=== PATIENT | male | born 1980 | race African-American/Black ===

== ENCOUNTER 2019-12-03 09:26 | Inpatient (IN) | payer OTHER ==
[2019-12-03 09:59] VITALS: BMI 27.0
--- NOTE | 2019-12-03 10:38 | HP ---
CIWA Score Nausea/Vomitin Muscle Tremors: 2 Anxiety: 3 Agitation: 2 Paroxysmal Sweats: 2 Orientation: 0-Oriented Tacttile Disturbances: 0-None Auditory Disturbances: 0-None Visual Disturbances: 0-None Headache: 1-Very Mild CIWA-Ar Total Score: 12 - Admission Criteria OASAS Guidelines: Admission for Medically Managed Detox: Requires at least one of the followin. CIWA greater than 12 2. Seizures within the past 24 hours 3. Delirium tremens within the past 24 hours 4. Hallucinations within the past 24 hours 5. Acute intervention needed for co occurring medical disorder 6. Acute intervention needed for co occurring psychiatric disorder 7. Severe withdrawal that cannot be handled at a lower level of care (continued vomiting, continued diarrhea, abnormal vital signs) requiring intravenous medication and/or fluids 8. Admitting History and Physical - Admission Chief Complaint: Mr. Raines presents to [facility] requesting admission to detox for alchohol use disorder. History of Present Illness: Mr. Raines is a 39 yo gentleman with no significant medical history who presents to [facility] requesting admission to detox for alcohol use disorder. History EtOH: first use age 19 y, last use yesterday at 11:30 am, quantity: Vodka 1/2 pint daily, Beer 80 ounces per day. History of black out 3 days ago. Seizure in June 2019. Marijuana: first at age 19 y, last use 4 days ago, quantity: 2 blunts Nicotine: first use ag 19 y, last use last night, quantity: 3-4 cigs/ day Denies; heroin, methadone, cocaine, benzodiazepines - Smoking History Smoking history: Current every day smoker Have you smoked in the past 12 months: Yes Aproximately how many cigarettes per day: [address] [facility] Allergies/Adverse Reactions: Allergies Allergy/AdvReac Type Severity Reaction Status Date / Time No Known Allergies Allergy Verified 12/03/19 09:48 Exam Limitations: No Limitations - Ebola screening Have you traveled outside of the country in the last 21 days: No Have you had contact with anyone from an Ebola affected area: No Have you been sick,other than usual withdrawal symptoms: No Do you have a fever: No - Review of Systems Constitutional: No Symptoms Reported EENT: reports: No Symptoms Reported, Other (wears glasses for reading) Respiratory: reports: No Symptoms reported Cardiac: reports: No Symptoms Reported GI: reports: No Symptoms Reported, See HPI : reports: Other (recent vericocoel) Musculoskeletal: reports: No Symptoms Reported Integumentary: reports: No Symptoms Reported Neuro: reports: No Symptoms reported Endocrine: reports: No Symptoms Reported, Other (feels dehydrated currently) Hematology: reports: No Symptoms Reported Psychiatric: reports: No Sypmtoms Reported Patient History - Patient Medical History Hx Asthma: No Hx Chronic Obstructive Pulmonary Disease (COPD): No Hx Cardiac Disorders: No Hx Hypertension: No Hx Seizures: Yes (last seizure was 07/18 not currently on medication.) Hx Diabetes: No Hx Gastrointestinal Disorders: Yes (Hx of acid reflux.) Hx Genitourinary Disorders: No Hx Sexually Transmitted Disorders: Yes (Hx of gonnorhea) Hx Renal Disease (ESRD): No Hx Depression: No Hx Suicide Attempt: No Hx Schizophrenia: No Other Medical History: Sickle cell trait - Patient Surgical History Past Surgical History: Yes Other Surgical History: Sx for varicele at age 11 yrs. - PPD History Previous Implant?: Yes Documented Results: Negative w/o proof Implanted On Prior R Admission?: No PPD to be Administered?: Yes - Smoking Cessation Smoking history: Current every day smoker Have you smoked in the past 12 months: Yes Aproximately how many cigarettes per day: 4 Hx Chewing Tobacco Use: No Initiated information on smoking cessation: Yes 'Breaking Loose' booklet given: 12/03/19 - Substance & Tx. History Substance Use Type: Alcohol, Marijuana Hx Substance Use Treatment: No - Substances abused Alcohol Substance route: Oral Frequency: Daily Amount used: 2 40 oz beers/ 1-2 pints vodka Age of first use: 19 Date of last use: 12/02/19 Other Substance route: Smoking Frequency: 1-2 times per week Amount used: 2 blunts Age of first use: 19 Date of last use: 11/30/19 Admission Physical Exam BHS - Vital Signs Vital Signs: Vital Signs - 24 hr 12/03/19 09:49 Temperature 97.9 F Pulse Rate 71 Respiratory 16 Rate Blood Pressure 133/74 - Physical General Appearance: Yes: No Apparent Distress, Nourished, Appropriately Dressed HEENTM: Yes: EOMI, Hearing grossly Normal, Normal Voice, ОЛЬГА, Pharynx Normal, Other (3 tongue bolts, one lower lip/chin bolt, one right lateral brow bolt) Respiratory: Yes: Lungs Clear, Normal Breath Sounds Neck: Yes: Within Normal Limits Breast: Yes: Breast Exam Deferred Cardiology: Yes: Regular Rate, S1, S2 Abdominal: Yes: Normal Bowel Sounds, Non Tender, Flat, Soft Genitourinary: Yes: Other (deferred) Back: Yes: Within Normal Limits, Normal Inspection Extremities: Yes: Within Normal Limits, Other (multiple tattoos bilateral forearms) Neurological: Yes: port warden II-XII NML intact, Fully Oriented, Alert, Normal Mood/ Affect Integumentary: Yes: Within Normal Limits Lymphatic: Yes: Within Normal Limits - Diagnostic (1) Alcohol dependence with withdrawal, uncomplicated Current Visit: Yes Status: Acute Cleared for Admission S - Detox or Rehab [facility] Level of Care: Medically Managed Breathalyzer - Breathalyzer Breathalyzer: 0 Urine Drug Screen - Test Device Lot number: [id number] Expiration date: 09/23/21 - Control Is test valid?: Yes - Results Drug screen NEGATIVE: No Urine drug screen results: THC-Marijuana Inpatient Rehab Admission - Rehab Decision to Admit Inpatient rehab admission?: No
[2019-12-03] MEDS ORDERED: MAGNESIUM CITRATE 300 ML BOTTLE PO PRN (10:47)
[2019-12-03] MEDS ORDERED: chlordiazePOXIDE HCL 25 MG CAPSULE PO PRN (10:47)
[2019-12-03] MEDS ORDERED: ACETAMINOPHEN 325 MG TABLET (FP) PO PRN ×2 (10:47)
[2019-12-03] MEDS ORDERED: BISMUTH SUBSALICYLATE 262 MG/15 ML BTL PO PRN (10:47)
[2019-12-03] MEDS ORDERED: MAG HYDROX/AL HYDROX/SIMETH 30 ML UNIT-DOSE CUP PO PRN (10:47)
[2019-12-03] MEDS ORDERED: hydrOXYzine PAMOATE 25 MG CAPSULE (FP) PO PRN (10:47)
[2019-12-03] MEDS ORDERED: MAGNESIUM HYDROX 2400MG/30ML ORAL SUSPENSION 30 ML CUP PO PRN (10:47)
[2019-12-03] MEDS ORDERED: MENTHOL/PHENOL 1 EACH UD MM PRN (10:47)
[2019-12-03] MEDS ORDERED: IBUPROFEN 400 MG TABLET (FP) PO PRN (10:47)
[2019-12-03] MEDS: chlordiazePOXIDE HCL 25 MG CAPSULE PO SCH ×3 (11:48→22:05)
[2019-12-03] MEDS: DOXYCYCLINE HYCLATE 100 MG TABLET PO SCH ×2 (12:28→17:46)
[2019-12-03 15:57] LABS: HEMATOCRIT 43.4 % (35.4-49); HEMOGLOBIN 14.6 GM/dL (11.7-16.9); MCH 31.2 pg (25.7-33.7); MCHC 33.6 g/dl (32.0-35.9); MEAN CELL VOLUME 92.8 fl (80-96); MEAN PLT VOLUME 8.6 fl (7.5-11.1); PLATELET COUNT 263 K/MM3 (134-434); RBC 4.67 M/mm3 (4.00-5.60); RDW 14.3 % (11.9-15.9); WHITE BLOOD COUNT 5.1 K/mm3 (4.0-10.0)
[2019-12-03 16:07] LABS: ALBUMIN 3.9 g/dl (3.4-5.0); BILIRUBIN,TOTAL 0.7 mg/dL (0.2-1); BLOOD UREA NITROGEN 13.5 mg/dL (7-18); CALCIUM 9.1 mg/dL (8.5-10.1); CREATININE 1.1 mg/dL (0.55-1.3); POTASSIUM 3.9 mmol/L (3.5-5.1); TOT PROT 7.2 g/dl (6.4-8.2)
[2019-12-03] MEDS: NICOTINE POLACRILEX 2 MG GUM BUC PRN (17:49)
[2019-12-03] MEDS: THIAMINE HCL 100 MG TABLET (FP) PO SCH (22:06)
[2019-12-03] MEDS: MELATONIN 5 MG TABLETS PO PRN (22:06)
[2019-12-04] MEDS: chlordiazePOXIDE HCL 25 MG CAPSULE PO SCH ×4 (06:33→22:11)
[2019-12-04] MEDS: PRENATAL VITAMINS W/ FOLIC ACID TABLET (FP) PO SCH (10:36)
[2019-12-04] MEDS: DOXYCYCLINE HYCLATE 100 MG TABLET PO SCH ×2 (10:37→18:08)
--- NOTE | 2019-12-04 11:48 | PN ---
S CIWA - CIWA Score Nausea/Vomitin-No Nausea/No Vomiting Muscle Tremors: 2 Anxiety: 2 Agitation: 2 Paroxysmal Sweats: 1-Minimal Palms Moist Orientation: 0-Oriented Tacttile Disturbances: 0-None Auditory Disturbances: 0-None Visual Disturbances: 0-None Headache: 0-None Present CIWA-Ar Total Score: 7 BHS Progress Note (SOAP) Subjective: feeling better sweats restless Objective: 12/04/19 11:43 Vital Signs Temperature 97.5 F L 12/04/19 08:54 Pulse Rate 58 L 12/04/19 08:54 Respiratory Rate 18 12/04/19 08:54 Blood Pressure 112/74 12/04/19 08:54 O2 Sat by Pulse Oximetry (%) Laboratory Tests 12/03/19 12/03/19 12/03/19 11:15 11:15 11:15 WBC 5.1 RBC 4.67 Hgb 14.6 Hct 43.4 MCV 92.8 MCH 31.2 MCHC 33.6 RDW 14.3 Plt Count 263 MPV 8.6 Sodium 140 Potassium 3.9 Chloride 108 H Carbon Dioxide 28 Anion Gap 4 L BUN 13.5 Creatinine 1.1 Est GFR (CKD-EPI)AfAm 98.87 Est GFR (CKD-EPI)NonAf 85.31 Random Glucose 81 Calcium 9.1 Total Bilirubin 0.7 AST 55 H ALT 46 Alkaline Phosphatase 59 Total Protein 7.2 Albumin 3.9 RPR Titer Nonreactive aaox3 ambulating no acute distress Assessment: 12/04/19 11:45 withdrawals Plan: continue detox
[2019-12-04] MEDS ORDERED: PNEUMOCOCCAL 23 VACCINE 0.5 ML VIAL IM ONE (12:00)
[2019-12-04] MEDS ORDERED: PNEUMOC 13-VAL CONJ-DIP CRM/PF 0.5 ML DISP.SYRIN IM ONE (12:00)
[2019-12-04] MEDS: NICOTINE POLACRILEX 2 MG GUM BUC PRN (13:24)
[2019-12-04] MEDS: THIAMINE HCL 100 MG TABLET (FP) PO SCH (22:11)
[2019-12-04] MEDS: METHOCARBAMOL 500 MG TABLET PO PRN (22:11)
[2019-12-04] MEDS: MELATONIN 5 MG TABLETS PO PRN (22:11)
[2019-12-05] MEDS: chlordiazePOXIDE HCL 25 MG CAPSULE PO SCH ×4 (06:26→22:21)
[2019-12-05] MEDS: METHOCARBAMOL 500 MG TABLET PO PRN ×2 (06:26→18:25)
[2019-12-05] MEDS: PRENATAL VITAMINS W/ FOLIC ACID TABLET (FP) PO SCH (10:47)
[2019-12-05] MEDS: DOXYCYCLINE HYCLATE 100 MG TABLET PO SCH ×2 (10:50→18:24)
--- NOTE | 2019-12-05 11:23 | PN ---
S CIWA - CIWA Score Nausea/Vomitin-No Nausea/No Vomiting Muscle Tremors: 2 Anxiety: 1-Mildly Anxious Agitation: 1-Slight > Activity Paroxysmal Sweats: 1-Minimal Palms Moist Orientation: 0-Oriented Tacttile Disturbances: 0-None Auditory Disturbances: 0-None Visual Disturbances: 0-None Headache: 0-None Present CIWA-Ar Total Score: 5 BHS Progress Note (SOAP) Subjective: feeling better sweats Objective: 12/05/19 11:22 Vital Signs Temperature 97.1 F L 12/05/19 09:18 Pulse Rate 61 12/05/19 09:18 Respiratory Rate 16 12/05/19 09:18 Blood Pressure 118/55 L 12/05/19 09:18 O2 Sat by Pulse Oximetry (%) Laboratory Tests 12/03/19 12/03/19 12/03/19 11:15 11:15 11:15 WBC 5.1 RBC 4.67 Hgb 14.6 Hct 43.4 MCV 92.8 MCH 31.2 MCHC 33.6 RDW 14.3 Plt Count 263 MPV 8.6 Sodium 140 Potassium 3.9 Chloride 108 H Carbon Dioxide 28 Anion Gap 4 L BUN 13.5 Creatinine 1.1 Est GFR (CKD-EPI)AfAm 98.87 Est GFR (CKD-EPI)NonAf 85.31 Random Glucose 81 Calcium 9.1 Total Bilirubin 0.7 AST 55 H ALT 46 Alkaline Phosphatase 59 Total Protein 7.2 Albumin 3.9 RPR Titer Nonreactive aaox3 ambulating no acute distress Assessment: 12/05/19 11:23 mild withdrawals Plan: continue detox increase fluids
[2019-12-05] MEDS: THIAMINE HCL 100 MG TABLET (FP) PO SCH (22:21)
[2019-12-05] MEDS: MELATONIN 5 MG TABLETS PO PRN (22:22)
[2019-12-06] MEDS ORDERED: chlordiazePOXIDE HCL 10 MG CAPSULE PO PRN
[2019-12-06] MEDS: chlordiazePOXIDE HCL 10 MG CAPSULE PO SCH ×4 (06:00→22:03)
[2019-12-06] MEDS: DOXYCYCLINE HYCLATE 100 MG TABLET PO SCH ×2 (10:07→17:52)
[2019-12-06] MEDS: PRENATAL VITAMINS W/ FOLIC ACID TABLET (FP) PO SCH (10:07)
--- NOTE | 2019-12-06 12:45 | PN ---
S CIWA - CIWA Score Nausea/Vomitin-No Nausea/No Vomiting Muscle Tremors: 2 Anxiety: 1-Mildly Anxious Agitation: 1-Slight > Activity Paroxysmal Sweats: 1-Minimal Palms Moist Orientation: 0-Oriented Tacttile Disturbances: 0-None Auditory Disturbances: 0-None Visual Disturbances: 0-None Headache: 0-None Present CIWA-Ar Total Score: 5 BHS Progress Note (SOAP) Subjective: feeling better sweats Objective: 12/06/19 12:45 Vital Signs Temperature 97.3 F L 12/06/19 08:47 Pulse Rate 62 12/06/19 08:47 Respiratory Rate 17 12/06/19 08:47 Blood Pressure 110/64 12/06/19 08:47 O2 Sat by Pulse Oximetry (%) aaox3 ambulating no acute distress Assessment: 12/06/19 12:45 withdrawals Plan: continue detox increase fluids
[2019-12-06] MEDS: THIAMINE HCL 100 MG TABLET (FP) PO SCH (22:03)
[2019-12-06] MEDS: MELATONIN 5 MG TABLETS PO PRN (22:03)
[2019-12-06] MEDS: METHOCARBAMOL 500 MG TABLET PO PRN (22:04)
[2019-12-07] MEDS: chlordiazePOXIDE HCL 10 MG CAPSULE PO SCH ×2 (05:48→17:55)
[2019-12-07] MEDS: PRENATAL VITAMINS W/ FOLIC ACID TABLET (FP) PO SCH (10:08)
[2019-12-07] MEDS: DOXYCYCLINE HYCLATE 100 MG TABLET PO SCH ×2 (10:08→17:55)
--- NOTE | 2019-12-07 13:44 | PN ---
S CIWA - CIWA Score Nausea/Vomitin-Mild Nausea/No Vomiting Muscle Tremors: 1-None Visible, but [place] Anxiety: 1-Mildly Anxious Agitation: 0-Normal Activity Paroxysmal Sweats: 1-Minimal Palms Moist Orientation: 0-Oriented Tacttile Disturbances: 0-None Auditory Disturbances: 0-None Visual Disturbances: 0-None Headache: 1-Very Mild CIWA-Ar Total Score: 5 BHS Progress Note (SOAP) Subjective: Mild withdrawal sx Objective: 12/07/19 13:43 Withdrawal sx Vital Signs Temperature 97.9 F 12/07/19 09:32 Pulse Rate 60 12/07/19 09:32 Respiratory Rate 20 12/07/19 09:32 Blood Pressure 125/69 12/07/19 09:32 O2 Sat by Pulse Oximetry (%) VSS Laboratory Last Values WBC 5.1 K/mm3 (4.0-10.0) 12/03/19 11:15 RBC 4.67 M/mm3 (4.00-5.60) 12/03/19 11:15 Hgb 14.6 GM/dL (11.7-16.9) 12/03/19 11:15 Hct 43.4 % (35.4-49) 12/03/19 11:15 MCV 92.8 fl (80-96) 12/03/19 11:15 MCH 31.2 pg (25.7-33.7) 12/03/19 11:15 MCHC 33.6 g/dl (32.0-35.9) 12/03/19 11:15 RDW 14.3 % (11.9-15.9) 12/03/19 11:15 Plt Count 263 K/MM3 (134-434) 12/03/19 11:15 MPV 8.6 fl (7.5-11.1) 12/03/19 11:15 Sodium 140 mmol/L (136-145) 12/03/19 11:15 Potassium 3.9 mmol/L (3.5-5.1) 12/03/19 11:15 Chloride 108 mmol/L (98-107) H 12/03/19 11:15 Carbon Dioxide 28 mmol/L (21-32) 12/03/19 11:15 Anion Gap 4 MMOL/L (8-16) L 12/03/19 11:15 BUN 13.5 mg/dL (7-18) 12/03/19 11:15 Creatinine 1.1 mg/dL (0.55-1.3) 12/03/19 11:15 Est GFR (CKD-EPI)AfAm 98.87 12/03/19 11:15 Est GFR (CKD-EPI)NonAf 85.31 12/03/19 11:15 Random Glucose 81 mg/dL (74-106) 12/03/19 11:15 Calcium 9.1 mg/dL (8.5-10.1) 12/03/19 11:15 Total Bilirubin 0.7 mg/dL (0.2-1) 12/03/19 11:15 AST 55 U/L (15-37) H 12/03/19 11:15 ALT 46 U/L (13-61) 12/03/19 11:15 Alkaline Phosphatase 59 U/L (45-117) 12/03/19 11:15 Total Protein 7.2 g/dl (6.4-8.2) 12/03/19 11:15 Albumin 3.9 g/dl (3.4-5.0) 12/03/19 11:15 RPR Titer Nonreactive (NONREACTIVE) 12/03/19 11:15 Labs noted Assessment: 12/07/19 13:44 Withdrawal sx Plan: Continue detox
[2019-12-07] MEDS: THIAMINE HCL 100 MG TABLET (FP) PO SCH (22:17)
[2019-12-07] MEDS: MELATONIN 5 MG TABLETS PO PRN (22:17)
[2019-12-08] MEDS ORDERED: chlordiazePOXIDE HCL 10 MG CAPSULE PO ONE (05:00)
[2019-12-08 09:55] VITALS: BP 119/73; PULSE 63; TEMP 97.3
[2019-12-08] MEDS: PRENATAL VITAMINS W/ FOLIC ACID TABLET (FP) PO SCH (09:55)
--- NOTE | 2019-12-08 17:42 | DS ---
[facility] Detox Discharge Summary Admission Date: 12/03/19 Discharge Date: 12/08/19 - History Present History: Alcohol Dependence, Cannabis Dependence Additional Comments: Patient completed detox and discharged safely. Instructed to follow up with PCP within 1-2 weeks. Pertinent Past History: Alcohol dependence Nicotine dependence Cannabis dependence Sickle cell trait Seizure disorder GERD - Physical Exam Results Vital Signs: Vital Signs Temperature 97.3 F L 12/08/19 09:25 Pulse Rate 63 12/08/19 09:25 Respiratory Rate 20 12/08/19 09:25 Blood Pressure 119/73 12/08/19 09:25 O2 Sat by Pulse Oximetry (%) Pertinent Admission Physical Exam Findings: Withdrawal sxs Laboratory Tests 12/03/19 12/03/19 12/03/19 11:15 11:15 11:15 WBC 5.1 RBC 4.67 Hgb 14.6 Hct 43.4 MCV 92.8 MCH 31.2 MCHC 33.6 RDW 14.3 Plt Count 263 MPV 8.6 Sodium 140 Potassium 3.9 Chloride 108 H Carbon Dioxide 28 Anion Gap 4 L BUN 13.5 Creatinine 1.1 Est GFR (CKD-EPI)AfAm 98.87 Est GFR (CKD-EPI)NonAf 85.31 Random Glucose 81 Calcium 9.1 Total Bilirubin 0.7 AST 55 H ALT 46 Alkaline Phosphatase 59 Total Protein 7.2 Albumin 3.9 RPR Titer Nonreactive Labs reviewed - Treatment Hospital Course: Detox Protocol Followed, Detoxed Safely, Responded well, Discharged Condition Good - Medication Discharge Medications: Ambulatory Orders Doxycycline Hyclate 100 mg PO BID 12/03/19 - Diagnosis (1) Cannabis dependence Status: Acute (2) Nicotine dependence Status: Chronic (3) Seizure disorder Status: Chronic (4) Sickle cell trait Status: Chronic (5) GERD (gastroesophageal reflux disease) Status: Chronic (6) Alcohol dependence with withdrawal, uncomplicated Status: Acute - AMA Did Patient Leave Against Medical Advice: No (Follow up with PCP within 1-2 weeks)
== END 2019-12-08 11:14 | disposition home or self-care (01) | DRG 775 ==
LOC: YASAS 09:26 → Y6N 11:07
PROVIDERS: ADMIT Allergy & Immunology; ATTEND Allergy & Immunology
PROC: HZ2ZZZZ Detoxification Services for Substance Abuse Treatment (ICD-10-PCS; principal; 2019-12-03)
DX: F10.230 Alcohol dependence with withdrawal, uncomplicated (principal); F12.20 Cannabis dependence, uncomplicated; F17.210 Nicotine dependence, cigarettes, uncomplicated; G40.909 Epilepsy, unspecified, not intractable, without status epilepticus; K21.9 Gastro-esophageal reflux disease without esophagitis; D57.3 Sickle-cell trait; Z87.438 Personal history of other diseases of male genital organs; Z59.0 Homelessness
CPT/HCPCS: 36415; 80053; 85027; 86593; 90732; G0009

== ENCOUNTER 2019-12-09 08:09 | Inpatient (IN) | payer OTHER ==
[2019-12-09 09:01] VITALS: BMI 28.0
--- NOTE | 2019-12-09 09:23 | HP ---
CIWA Score Nausea/Vomitin-No Nausea/No Vomiting Muscle Tremors: None Anxiety: 0-No Anxiety, at Ease Agitation: 0-Normal Activity Paroxysmal Sweats: No Perspiration Orientation: 0-Oriented Tacttile Disturbances: 0-None Auditory Disturbances: 0-None Visual Disturbances: 0-None Headache: 0-None Present CIWA-Ar Total Score: 0 - Admission Criteria OASAS Guidelines: Admission for Medically Managed Detox: Requires at least one of the followin. CIWA greater than 12 2. Seizures within the past 24 hours 3. Delirium tremens within the past 24 hours 4. Hallucinations within the past 24 hours 5. Acute intervention needed for co occurring medical disorder 6. Acute intervention needed for co occurring psychiatric disorder 7. Severe withdrawal that cannot be handled at a lower level of care (continued vomiting, continued diarrhea, abnormal vital signs) requiring intravenous medication and/or fluids 8. Admitting History and Physical - Admission Chief Complaint: Mr. Raines is a 39 yo man who returns for admission to Rehab. History of Present Illness: Mr. Raines is a 39 yo gentleman who presents to [facility] for admission to Rehab. He was discharged yesterday from Detox here. He was treated with a Librium withdrawal protocol for 5 days. Last night he stayed at the [facility]. PMH: Asthma, varicocele, seizure in June, noncomplaint with [facility] Substance use history Alcohol : 2 pints Vodka daily, 40 oz beers daily, first drink age 19y, last drink this am Marijuana: 2 blunts every other day Cigs: 2-3/day - Smoking History Smoking history: Current every day smoker Have you smoked in the past 12 months: Yes Aproximately how many cigarettes per day: 4 Admission [facility] Chief Complaint: Mr. Raines presents to [facility] requesting Rehab for alcohol use disorder Allergies/Adverse Reactions: Allergies Allergy/AdvReac Type Severity Reaction Status Date / Time No Known Allergies Allergy Verified 12/09/19 08:55 Exam Limitations: No Limitations - Ebola screening Have you traveled outside of the country in the last 21 days: No Have you had contact with anyone from an Ebola affected area: No Have you been sick,other than usual withdrawal symptoms: No Do you have a fever: No - Review of Systems Constitutional: No Symptoms Reported EENT: reports: No Symptoms Reported Respiratory: reports: No Symptoms reported Cardiac: reports: No Symptoms Reported GI: reports: No Symptoms Reported : reports: No Symptoms Reported Musculoskeletal: reports: No Symptoms Reported Integumentary: reports: No Symptoms Reported Neuro: reports: No Symptoms reported Endocrine: reports: No Symptoms Reported Hematology: reports: No Symptoms Reported Psychiatric: reports: No Sypmtoms Reported Patient History - Patient Medical History Hx Asthma: Yes (NO ASTHMA ATTACK SINCE AGE 17) Hx Chronic Obstructive Pulmonary Disease (COPD): No Hx Cardiac Disorders: No Hx Hypertension: No Hx Seizures: Yes (last seizure was 07/18 not currently on medication.) Hx Diabetes: No Hx Gastrointestinal Disorders: Yes (Hx of acid reflux.) Hx Genitourinary Disorders: No Hx Sexually Transmitted Disorders: Yes (Hx of gonnorhea) Hx Renal Disease (ESRD): No Hx Depression: No Hx Suicide Attempt: No Hx Schizophrenia: No - Patient Surgical History Past Surgical History: Yes Hx Neurologic Surgery: No Hx Cataract Extraction: No Hx Cardiac Surgery: No Hx Lung Surgery: No Hx Breast Surgery: No Hx Breast Biopsy: No Hx Abdominal Surgery: No Hx Appendectomy: No Hx Cholecystectomy: No Hx Genitourinary Surgery: No Hx Section: No Hx Orthopedic Surgery: No Other Surgical History: Sx for varicocele at age 11 yrs. - PPD History Previous Implant?: Yes Documented Results: Negative w/proof Implanted On Prior [facility] Admission?: No Date: 12/05/19 - Smoking Cessation Smoking history: Current every day smoker Have you smoked in the past 12 months: Yes Aproximately how many cigarettes per day: 4 Hx Chewing Tobacco Use: No Initiated information on smoking cessation: Yes 'Breaking Loose' booklet given: 12/09/19 - Substances abused Alcohol Substance route: Oral Frequency: Daily Amount used: 2 PINTS OF VODKA, 40 OUNCES BEER Age of first use: 20 Date of last use: 12/09/19 Marijuana/Hashish Substance route: Smoking Frequency: 1-2 times per week Amount used: 2 BLUNTS Age of first use: 19 Date of last use: 11/18/19 Admission Physical Exam BHS - Vital Signs Vital Signs: Vital Signs - 24 hr 12/09/19 08:49 Temperature 97.4 F L Pulse Rate 90 Respiratory 18 Rate Blood Pressure 136/70 - Physical General Appearance: Yes: Within Normal Limits HEENTM: Yes: Within Normal Limits Respiratory: Yes: Lungs Clear, Normal Breath Sounds Breast: Yes: Breast Exam Deferred Cardiology: Yes: Regular Rate, S1, S2 Abdominal: Yes: Non Tender, Flat, Soft, Decreased BS Back: Yes: Normal Inspection Musculoskeletal: Yes: Within Normal Limits Neurological: Yes: Fully Oriented, Alert Integumentary: Yes: Other (multiple tattoos) - Diagnostic (1) Alcohol use disorder Current Visit: Yes Status: Acute (2) Cannabis dependence Current Visit: Yes Status: Chronic (3) Nicotine dependence Current Visit: Yes Status: Chronic (4) Seizure disorder Current Visit: Yes Status: Chronic Cleared for Admission S - Detox or Rehab [facility] Level of Care: Medically Supervised Breathalyzer - Breathalyzer Breathalyzer: 0.084 Urine Drug Screen - Test Device Lot number: [id number] Expiration date: 09/28/21 - Control Is test valid?: Yes - Results Drug screen NEGATIVE: No Urine drug screen results: THC-Marijuana, BZO-Benzodiazepines Inpatient Rehab Admission - Rehab Decision to Admit Inpatient rehab admission?: Yes - Initial Determination Are CD services needed?: Yes Free of communicable disease: Yes Not in need of hospitalization: Yes - Rehab Admission Criteria Previous failed treatment: Yes Poor recovery environment: Yes Comorbidities: Yes Lacks judgement: Yes Patient is meeting Inpatient Rehab admission criteria:: Yes
[2019-12-09] MEDS ORDERED: MENTHOL/PHENOL 1 EACH UD MM PRN (09:30)
[2019-12-09] MEDS ORDERED: MAGNESIUM HYDROX 2400MG/30ML ORAL SUSPENSION 30 ML CUP PO PRN (09:30)
[2019-12-09] MEDS ORDERED: MAG HYDROX/AL HYDROX/SIMETH 30 ML UNIT-DOSE CUP PO PRN (09:30)
[2019-12-09] MEDS ORDERED: IBUPROFEN 400 MG TABLET (FP) PO PRN (09:30)
[2019-12-09] MEDS ORDERED: MAGNESIUM CITRATE 300 ML BOTTLE PO PRN (09:30)
[2019-12-09] MEDS ORDERED: NICOTINE POLACRILEX 2 MG GUM BUC PRN (09:30)
[2019-12-09] MEDS ORDERED: guaiFENesin 200 MG/10 ML 10 ML UNIT-DOSE CUPS PO PRN (09:30)
[2019-12-09] MEDS ORDERED: LOPERAMIDE HCL 2 MG CAPSULE PO PRN (09:30)
[2019-12-09] MEDS ORDERED: ACETAMINOPHEN 325 MG TABLET (FP) PO PRN (09:30)
[2019-12-09] MEDS ORDERED: P-EPHED 60MG/TRIPROLIDI 2.5MG TABLET PO PRN (09:30)
[2019-12-09] MEDS: PRENATAL VITAMINS W/ FOLIC ACID TABLET (FP) PO SCH (12:05)
[2019-12-09 13:10] LABS: ALBUMIN 3.9 g/dl (3.4-5.0); BILIRUBIN,TOTAL 0.6 mg/dL (0.2-1); BLOOD UREA NITROGEN 9.4 mg/dL (7-18); CALCIUM 9.7 mg/dL (8.5-10.1); CREATININE 0.9 mg/dL (0.55-1.3); POTASSIUM 3.9 mmol/L (3.5-5.1); TOT PROT 7.6 g/dl (6.4-8.2)
[2019-12-09] MEDS: THIAMINE HCL 100 MG TABLET (FP) PO SCH (21:38)
[2019-12-09] MEDS: MELATONIN 5 MG TABLETS PO PRN (21:38)
--- NOTE | 2019-12-10 09:38 | PN ---
[facility] Progress Note Note: Pt is a 39 y/o male with a hx of TOMY-alcohol,marijuana admitted to rehab through [facility]. Pt completed detox on on 12/03/19 to 12/08/19 and returned to seek rehab treatment yesterday. PMHx:Seizure d/o(On Keppra but noncompliant since and does not know his dose),Asthma(stable and no inhaler since 17 age),GERD(OTC tums), Left ankle Fx @34 y/o r/t twisting ankle/Baseball injury on same ankle in high school-torn ligament, Left knee pain and abrasion about weeks ago "banged my knee on my son's computer desk". PSHX:Left Varicocele (at age [age]; reoccurred 2 weeks ago and treated at [facility]);. Psych Hx:Denies. Pt reports he has primary care with [facility] on [place], [place]. This scientific writer called his home pharmacy [facility] and the pharmacist states he is not getting Keppra or any Seizure medications from their pharmacy records. Vital Signs - 24 hr 12/09/19 12/10/19 12/10/19 10:15 00:30 03:30 Temperature 97.6 F Pulse Rate 81 Respiratory 18 20 20 Rate Blood Pressure 117/69 12/10/19 07:16 Temperature 97.1 F L Pulse Rate 57 L Respiratory 20 Rate Blood Pressure 112/67 Alert o x 3, nad oob ambulating with steady gait extremities/skin:no edema; two scabs on left knee related to "banging knee on computer desk". A/P TOMY s/p detox Left knee abrasion Maintain safety increase po fluids seizure precautions Bacitracin ointment apply to left knee BID
[2019-12-10] MEDS: PRENATAL VITAMINS W/ FOLIC ACID TABLET (FP) PO SCH (10:40)
[2019-12-10] MEDS: NICOTINE 14 MG/24 HOURS TOPICAL PATCH TD SCH (10:41)
[2019-12-10] MEDS: BACITRACIN 15 GM TUBE TOPICAL OINTMENT TP SCH (10:41)
[2019-12-10] MEDS: FAMOTIDINE 20 MG TABLET PO SCH ×2 (10:41→21:14)
[2019-12-10] MEDS: THIAMINE HCL 100 MG TABLET (FP) PO SCH (21:14)
[2019-12-10] MEDS: MELATONIN 5 MG TABLETS PO PRN (21:14)
[2019-12-11] MEDS: NICOTINE 14 MG/24 HOURS TOPICAL PATCH TD SCH (10:40)
[2019-12-11] MEDS: PRENATAL VITAMINS W/ FOLIC ACID TABLET (FP) PO SCH (10:40)
[2019-12-11] MEDS: FAMOTIDINE 20 MG TABLET PO SCH ×2 (10:40→21:15)
[2019-12-11] MEDS: BACITRACIN 15 GM TUBE TOPICAL OINTMENT TP SCH (10:41)
[2019-12-11] MEDS: THIAMINE HCL 100 MG TABLET (FP) PO SCH (21:15)
[2019-12-11] MEDS: MELATONIN 5 MG TABLETS PO PRN (21:16)
[2019-12-12 07:27] VITALS: BP 101/66; PULSE 59; TEMP 97.3
[2019-12-12] MEDS: PRENATAL VITAMINS W/ FOLIC ACID TABLET (FP) PO SCH (10:24)
[2019-12-12] MEDS: NICOTINE 14 MG/24 HOURS TOPICAL PATCH TD SCH (10:24)
[2019-12-12] MEDS: FAMOTIDINE 20 MG TABLET PO SCH (10:24)
[2019-12-12] MEDS: BACITRACIN 15 GM TUBE TOPICAL OINTMENT TP SCH (10:25)
--- NOTE | 2019-12-12 14:21 | DS ---
[facility] Rehab Discharge Summary - [facility] Rehab Discharge Summary Admission Date: 12/09/19 Discharge Date: 12/12/19 - History Present History: Alcohol dependence, Cannabis dependence Additional Comments: Pt is a 39 y/o male with a hx of TOMY admitted to rehab and requesting early discharge today due to family/social service issues. Pt states he wants to go in person to [place] to reinstate his benefits which has been cut off. Reports he made a phone call home and was told he has to appear in person. Pt met with his counselor and has been referred to [facility] CD program for follow up. Pt reports he has primary care with [place], [place]. Pertinent Past History: Seizure Disorder(no current treatment) GERD Sickle Cell Trait - Discharge Physical Exam Vital Signs: Vital Signs Temperature 97.3 F L 12/12/19 07:26 Pulse Rate 59 L 12/12/19 07:26 Respiratory Rate 18 12/12/19 07:26 Blood Pressure 101/66 12/12/19 07:26 O2 Sat by Pulse Oximetry (%) Alert o x 3,denies s/h/i nad oob ambulating with steady gait cardiac:s1 s2, rrr lungs:cta, monik. abdomen:+bs,soft,nt,nd extremities/skin:no edema;skin intact. Pertinent Admission Physical Exam Findings: Laboratory Tests 12/09/19 09:50 Sodium 138 Potassium 3.9 Chloride 102 Carbon Dioxide 30 Anion Gap 6 L BUN 9.4 Creatinine 0.9 Est GFR (CKD-EPI)AfAm 126.02 Est GFR (CKD-EPI)NonAf 108.73 Random Glucose 84 Calcium 9.7 Total Bilirubin 0.6 AST 64 H ALT 67 H Alkaline Phosphatase 62 Total Protein 7.6 Albumin 3.9 - Treatment Discharge Condition: Discharge condition good Hospital Course: Rehab stay was safe. CD aftercare referral accepted to [facility] program. Pt attended groups and individual sessions while in treatment. - Medication Discharge Medications: Ambulatory Orders NK [No Known Home Medication] 12/09/19 - Medication-Assisted Treatment (MAT) Medication-Assisted Treatment (MAT): No - Discharge Instructions Diet, activity, other medical instructions: Diet:Regular Activity: oob ad shannon Other medical instructions:follow up with primary care provider @ [facility] within 1-2 weeks after discharge. follow up with CD aftercare referral recommendation as scheduled. - Diagnosis (1) Alcohol use disorder Current Visit: Yes Status: Chronic (2) Cannabis dependence Current Visit: Yes Status: Chronic (3) Nicotine dependence Current Visit: Yes Status: Chronic Qualifiers: Nicotine product type: cigarettes Substance use status: uncomplicated Qualified Code(s): F17.210 - Nicotine dependence, cigarettes, uncomplicated (4) Seizure disorder Current Visit: Yes Status: Chronic (5) GERD (gastroesophageal reflux disease) Current Visit: Yes Status: Chronic (6) Sickle cell trait Current Visit: Yes Status: Chronic - Follow-up Referral Minutes to complete discharge: 20 - AMA Did Patient Leave Against Medical Advice: No
== END 2019-12-12 14:50 | disposition home or self-care (01) | DRG 772 ==
LOC: YASAS 08:09 → Y5N 09:22
PROVIDERS: ADMIT Allergy & Immunology; ATTEND Allergy & Immunology
PROC: HZ42ZZZ Group Counseling for Substance Abuse Treatment, Cognitive-Behavioral (ICD-10-PCS; principal; 2019-12-09)
DX: F10.20 Alcohol dependence, uncomplicated (principal); F12.20 Cannabis dependence, uncomplicated; F17.210 Nicotine dependence, cigarettes, uncomplicated; G40.909 Epilepsy, unspecified, not intractable, without status epilepticus; K21.9 Gastro-esophageal reflux disease without esophagitis; D57.1 Sickle-cell disease without crisis; S80.212A Abrasion, left knee, initial encounter; W22.03XA Walked into furniture, initial encounter; Y93.89 Activity, other specified; Y92.018 Other place in single-family (private) house as the place of occurrence of the external cause; Y99.8 Other external cause status
CPT/HCPCS: 36415; 80053